=== PATIENT | female | born 1935 | race Caucasian/White ===

== ENCOUNTER 2017-03-09 14:45 | Emergency (ER) | payer MEDICARE ==
[2017-03-09] MEDS ORDERED: Acetaminophen TAB* 325 MG PO ONE (15:19)
--- NOTE | 2017-03-09 16:21 | RAD ---
INDICATION: Right knee injury. TECHNIQUE: 4 views of the right knee were obtained. FINDINGS: The bones appear osteopenic. There appears to be a joint effusion present. No fracture is seen. 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 There is an area of calcification which projects lateral to the femoral metaphysis. IMPRESSION: JOINT EFFUSION, NO FRACTURE IS SEEN. IF THE PATIENT'S SYMPTOMS PERSIST RECOMMEND FOLLOW-UP IMAGING.
--- NOTE | 2017-03-09 16:26 | RAD ---
INDICATION: Low back pain. COMPARISON: Comparison is made with a prior study from December 10, 2008. TECHNIQUE: 5 views of the lumbar spine were obtained including lateral, oblique, AP and a coned-down lateral view of the lumbar sacral junction. The exam is limited. There is poor visualization of the lumbar sacral junction. FINDINGS: There is a mild scoliosis convex toward the left side. No fracture is seen. There is moderate degenerative disc disease at the L3-L4, L4-L5 and L5-S1 levels. IMPRESSION: LIMITED STUDY WITH POOR VISUALIZATION OF THE LUMBAR SACRAL JUNCTION, NO FRACTURE IS SEEN.
--- NOTE | 2017-03-09 17:00 | RAD ---
INDICATION: Right hip injury. COMPARISON: There are no prior studies available for comparison. TECHNIQUE: An AP view of the pelvis and frontal and lateral views of the right hip were obtained. The exam is limited. FINDINGS: The bones are in normal alignment. No fracture is seen. 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 IMPRESSION: LIMITED STUDY, NO EVIDENCE FOR FRACTURE, IF THE PATIENT'S SYMPTOMS PERSIST RECOMMEND FOLLOW-UP IMAGING.
--- NOTE | 2017-03-09 17:02 | RAD ---
INDICATION: Left shoulder injury. TECHNIQUE: 4 views of the left shoulder were obtained. FINDINGS: The bones are in normal alignment. No fracture is seen. There is severe osteoarthritic change in the acromioclavicular joint. IMPRESSION: NO EVIDENCE OF FRACTURE.
[2017-03-09 18:53] VITALS: BP 147/86
--- NOTE | 2017-03-10 15:22 | ED ---
Elizabeth Whiting Nilda, scribed for Ryan Mckay MD on 03/09/17 at 1514 . Adult Trauma - HPI Summary HPI Summary: This patient is an 81 year old F BIBA to [facility] accompanied by family with a chief complaint of left knee pain s/p falling from a computer chair earlier today. Patient was seated on the computer chair and bended over to picker something from the floor, and the seat slipped out from under her. Pt states that she landed on her right side, but she believes left-sided pain may be exacerbated due to trauma history from previous accident. 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 Pt was non-ambulatory after the fall. The patient rates the pain 5/10 in severity. Symptoms aggravated by weight bearing and alleviated by rest. Patient reports lower back pain. Pt states at PCPs advisory, she can only take Tylenol for pain. - History of Current Complaint Stated Complaint: FALL Time Seen by Provider: 03/09/17 15:02 Hx Obtained From: Patient Mechanism of Injury: Fall Ambulatory at the Scene: No Loss of Consciousness: no loss of consciousness Onset/Duration: Started Minutes Ago, Traumatic, Still Present Onset Severity: Moderate Pain Intensity: 5 Pain Scale Used: 0-10 Numeric Location: Back - Lower back pain, left knee pain, LLE pain, Extremities - LLE pain Aggravating Factor(s): Weight Bearing Alleviating Factor(s): Rest Associated Signs & Symptoms: Positive: Other: - left knee and L - Allergy/Home Medications Allergies/Adverse Reactions: Allergies Allergy/AdvReac Type Severity Reaction Status Date / Time No Known Allergies Allergy Verified 03/09/17 16:10 PMH/Surg Hx/FS Hx/Imm Hx Endocrine/Hematology History: Reports: Hx Thyroid Disease Cardiovascular History: Reports: Hx Hypertension Respiratory History: Denies: Hx Asthma Musculoskeletal History: Reports: Hx Osteoporosis - Cancer History Hx Chemotherapy: No Hx Radiation Therapy: No - Surgical History Surgery Procedure, Year, and Place: CHOLECYSTECTOMY Infectious Disease History: Denies: Traveled Outside the [place] in Last 30 Days - Family History Known Family History: Positive: Cardiac Disease, Hypertension, Diabetes - Social History Lives: With Family Alcohol Use: None Hx Substance Use: No Substance Use Type: Reports: None Hx Tobacco Use: No Smoking Status (MU): Never Smoked Tobacco Review of Systems Positive: Other - mechanical fall Negative: Shortness Of Breath Positive: Other - LLE Pain, Left knee pain, Lower back pain, not ambulatory after fall Neurological: Other - negative LOC All Other Systems Reviewed And Are Negative: Yes Physical Exam - Summary Physical Exam Summary: VITAL SIGNS: Reviewed. GENERAL: Patient is a well-developed and nourished obese female who is lying comfortable in the stretcher and is in NAD. Patient is not in any acute respiratory distress. HEAD AND FACE: No signs of trauma. No ecchymosis, hematomas or skull depressions. No sinus tenderness. EYES: PERRLA, EOMI x 2, No injected conjunctiva, no nystagmus. EARS: Hearing grossly intact. Ear canals and tympanic membranes are within normal limits. MOUTH: Oropharynx within normal limits. NECK: Supple, trachea is midline, no adenopathy, no JVD, no carotid bruit, no c- spine tenderness, neck with full ROM. CHEST: Symmetric, no tenderness at palpation LUNGS: Clear to auscultation bilaterally. No wheezing or crackles. CVS: Regular rate and rhythm, S1 and S2 present, no murmurs or gallops appreciated. ABDOMEN: Soft, non-tender. No signs of distention. No rebound no guarding, and no masses palpated. Bowel sounds are normal. EXTREMITIES: Decrease ROM in right knee secondary to pain, no deformity, no ecchymosis, no hematoma, no edema, no cyanosis or clubbing. BACK: Lower lumbar paraspinal tenderness on right side. NEURO: Alert and oriented x 3. No acute neurological deficits. Speech is normal and follows commands. SKIN: Dry and warm Triage Information Reviewed: Yes Vital Signs Reviewed: Yes Diagnostics - Laboratory Lab Statement: Any lab studies that have been ordered have been reviewed, and results considered in the medical decision making process. - Radiology Shoulder XR Radiology Interpretation Completed By: Radiologist - Shoulder XR, per radiologist, reveals no evidence of fracture. ED physician has reviewed this radiology report and agrees. Lumbarsacral XR Radiology Interpretation Completed By: Radiologist - Lumbarsacral XR, per radiologist, reveals limited study with poor visualization of the lumbar sacral junction. No fracture is seen. ED physician has reviewed this radiology report and agrees. Right Hip XR Radiology Interpretation Completed By: Radiologist - Right Hip XR, limited study. No evidence for fracture. If the patients symptoms persists recommend follow up imaging. ED physician has reviewed this radiology report and agrees. Right knee XR Radiology Interpretation Completed By: Radiologist - Right Knee XR, per radiologist, reveals joint effusion. No fracture is seen. If the patients symptoms persist recommend follow-up imaging. ED physician has reviewed this radiology report and agrees. Re-Evaluation - Re-Evaluation Second Eval Re-Evaluation Time: 18:35 Comment: Pt able to ambulate with the walker that she normally uses. Discussed plan to DC pt. Pt is agreeable with this plan. First Eval Re-Evaluation Time: 17:55 Comment: Reviewed lab results. Adult Trauma Course/Dx - Course Assessment/Plan: This patient is an 81 year old F BIBA to [facility] accompanied by family with a chief complaint of left knee pain s/p falling from a computer chair earlier today. Patient was seated on the computer chair and bended over to picker something from the floor, and the seat slipped out from under her. Pt states that she landed on her right side, but she believes left-sided pain may be exacerbated due to trauma history from previous accident. 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 Pt was non-ambulatory after the fall. The patient rates the pain 5/10 in severity. Symptoms aggravated by weight bearing and alleviated by rest. Patient reports lower back pain. Pt states at PCPs advisory, she can only take Tylenol for pain. Pending right knee XR, Shoulder XR, Right Hip XR, and lumbarsacral XR. Shoulder XR, per radiologist, reveals no evidence of fracture. Lumbarsacral XR, per radiologist , reveals limited study with poor visualization of the lumbar sacral junction. No fracture is seen. Right Hip XR, limited study. No evidence for fracture. If the patients symptoms persists recommend follow up imaging. Right Knee XR, per radiologist, reveals joint effusion. No fracture is seen. If the patients symptoms persist recommend follow-up imaging. ED physician has reviewed these radiology reports and agrees. In the ED course, the patient was given Tylenol. The pt is hemodynamically stable, alert and oriented x3. Pt is able to ambulate with walker that she normally uses. Pt will be D/C with diagnoses of accidental fall, hip pain, and knee pain. - Diagnoses Provider Diagnoses: Hip pain, Knee pain, Accidental fall Discharge - Discharge Plan Condition: Stable Disposition: HOME Patient Education Materials: Fall Prevention for Older Adults (ED), Swollen Knee Joint (ED), Hip Pain (ED) Referrals: Jamie Ley MD [Primary Care Provider] - The documentation as recorded by the Elizabeth wilder Nilda accurately reflects the service I personally performed and the decisions made by Woody donnelly Walter, MD.
== END 2017-03-09 18:58 | disposition home or self-care (01) ==
LOC: ED 14:45
DX: M25.562 Pain in left knee (principal); M25.552 Pain in left hip
CPT/HCPCS: 72110; 99282; A9270-GY

== ENCOUNTER 2020-12-24 08:19 | Inpatient (IN) ==
[2020-12-24 15:17] LABS: ABS Monocytes 0.8 10^3/ul (0-0.8); ABS Neutrophils 9.2 10^3/ul (1.5-7.7); Eosinophil % 0.2 %; Hematocrit 42 % (35-47); Hemoglobin 13.9 g/dL (12.0-16.0); Lymphocyte % 8.9 %; Mean Corpuscular HGB Conc 33 g/dL (31-36); Mean Corpuscular Hemoglobin 29 pg (27-31); Mean Corpuscular Volume 88 fL (80-97); Mean Platelet Volume 7.6 fL (7.4-10.4); Platelet Count 267 10^3/uL (150-450); Red Blood Count 4.75 10^6 /uL (3.70-4.87); Red Cell Distribution Width 15 % (10-15); White Blood Count 11.1 10^3/uL (3.5-10.8)
[2020-12-24 15:33] LABS: Albumin 3.8 g/dL (3.2-5.2); Albumin/Globulin Ratio 1.3 (1-3); Calcium 9.8 mg/dL (8.6-10.3); EGFR African American 124.8 (>60); EGFR Non-African American 103.1 (>60); Potassium 3.9 mmol/L (3.5-5.0); Total Bilirubin 0.7 mg/dL (0.2-1.0); Total Protein 6.8 g/dL (6.4-8.9)
[2020-12-24] MEDS ORDERED: Iohexol 350 (CONTRAST) 500 ML MDV IV ONE (17:32)
[2020-12-24] MEDS ORDERED: Ondansetron 4 mg VIAL 2 MG/ML 2 ml VIAL IV PRN (17:47)
[2020-12-24 19:17] LABS: HDL Cholesterol 66.4 mg/dL
[2020-12-24 20:20] LABS: Rapid COVID-19 Molecular Undetected (Undetected)
[2020-12-24 22:37] LABS: Urine Appearance Cloudy; Urine Bilirubin Negative (Negative); Urine Blood Negative (Negative); Urine Color Yellow; Urine Glucose Negative (Negative); Urine Ketones Negative (Negative); Urine Nitrite Positive (Negative); Urine Protein Negative (Negative); Urine Urobilinogen Negative (Negative)
[2020-12-24 22:44] LABS: Urine Bacteria Absent (Absent); Urine Red Blood Cell 2+(6-10/hpf) (Absent); Urine Squamous Epithelial Cell Present (Absent); Urine White Blood Cell 3+(>20/hpf) (Absent)
[2020-12-24 23:24] LABS: Urine Specific Gravity > 1.060 (1.002-1.030)
[2020-12-25 06:39] LABS: ABS Eosinophils 0.1 10^3/ul (0-0.6); ABS Lymphocytes 1.2 10^3/ul (1.0-4.8); ABS Monocytes 0.6 10^3/ul (0-0.8); ABS Neutrophils 5.6 10^3/ul (1.5-7.7); Eosinophil % 1.2 %; Hematocrit 40 % (35-47); Hemoglobin 13.3 g/dL (12.0-16.0); Lymphocyte % 15.4 %; Mean Corpuscular HGB Conc 34 g/dL (31-36); Mean Corpuscular Hemoglobin 30 pg (27-31); Mean Corpuscular Volume 89 fL (80-97); Mean Platelet Volume 7.8 fL (7.4-10.4); Platelet Count 208 10^3/uL (150-450); Red Blood Count 4.45 10^6 /uL (3.70-4.87); Red Cell Distribution Width 16 % (10-15); White Blood Count 7.5 10^3/uL (3.5-10.8)
[2020-12-25 06:47] LABS: Calcium 9.3 mg/dL (8.6-10.3); Potassium 3.9 mmol/L (3.5-5.0)
[2020-12-25 06:53] LABS: EGFR African American 122.3 (>60)
[2020-12-25] MEDS: Cholecalciferol (VIT D3) 1,000 unit TAB PO SCH (09:01)
[2020-12-26] MEDS: Cholecalciferol (VIT D3) 1,000 unit TAB PO SCH (11:12)
[2020-12-26] MEDS ORDERED: Perflutren Lipid Microsphere 3 ML VIAL ONE (14:13)
[2020-12-26] MEDS: Polyethylene Glycol 3350 17 GM PACKET PO SCH (15:07)
[2020-12-26] MEDS ORDERED: Albuterol HFA INHALER 8 gm MDI INH PRN (23:48)
[2020-12-27 07:56] VITALS: BP 143/66
[2020-12-27] MEDS: Polyethylene Glycol 3350 17 GM PACKET PO SCH (08:57)
[2020-12-27] MEDS: Cholecalciferol (VIT D3) 1,000 unit TAB PO SCH (08:58)
== END 2020-12-27 09:20 | DRG 66 ==
LOC: ED 08:19 → MEDTELE 18:53 → UNDODISIN 12-27 09:20
PROVIDERS: ADMIT Hospitalist; ATTEND Internal Medicine

== ENCOUNTER 2020-12-27 07:16 | Inpatient (IN) ==
[2020-12-27] MEDS: Albuterol HFA INHALER 8 gm MDI INH PRN (17:47)
[2020-12-27] MEDS: Heparin 5000 UNITS/ML 1 mL VIAL SUBCUT SCH (20:12)
[2020-12-27] MEDS: Senna TAB 8.6 mg TAB PO PRN (20:12)
[2020-12-28] MEDS: Albuterol HFA INHALER 8 gm MDI INH PRN (01:03)
[2020-12-28 05:55] LABS: ABS Eosinophils 0.2 10^3/ul (0-0.6); ABS Lymphocytes 1.3 10^3/ul (1.0-4.8); ABS Monocytes 0.7 10^3/ul (0-0.8); Eosinophil % 2.3 %; Hematocrit 40 % (35-47); Hemoglobin 13.3 g/dL (12.0-16.0); Lymphocyte % 15.6 %; Mean Corpuscular HGB Conc 34 g/dL (31-36); Mean Corpuscular Hemoglobin 30 pg (27-31); Mean Corpuscular Volume 88 fL (80-97); Mean Platelet Volume 7.7 fL (7.4-10.4); Platelet Count 239 10^3/uL (150-450); Red Cell Distribution Width 15 % (10-15); White Blood Count 8.2 10^3/uL (3.5-10.8)
[2020-12-28 06:13] LABS: Albumin 3.5 g/dL (3.2-5.2); Albumin/Globulin Ratio 1.1 (1-3); Calcium 10.1 mg/dL (8.6-10.3); EGFR African American 108.9 (>60); Globulin 3.1 g/dL (2-4); Potassium 4.2 mmol/L (3.5-5.0); Total Bilirubin 0.9 mg/dL (0.2-1.0); Total Protein 6.6 g/dL (6.4-8.9)
[2020-12-28] MEDS: Heparin 5000 UNITS/ML 1 mL VIAL SUBCUT SCH ×2 (07:29→19:36)
[2020-12-28] MEDS: SPIRIVA Respimat (tiotropium) 2.5 mcg/inh Inhaler INH SCH (11:10)
[2020-12-28] MEDS: Senna TAB 8.6 mg TAB PO PRN (19:36)
[2020-12-29] MEDS: Heparin 5000 UNITS/ML 1 mL VIAL SUBCUT SCH ×2 (09:41→21:02)
[2020-12-29] MEDS: Albuterol HFA INHALER 8 gm MDI INH PRN (09:42)
[2020-12-29] MEDS: SPIRIVA Respimat (tiotropium) 2.5 mcg/inh Inhaler INH SCH (09:45)
[2020-12-30] MEDS: SPIRIVA Respimat (tiotropium) 2.5 mcg/inh Inhaler INH SCH (10:32)
[2020-12-30] MEDS: Heparin 5000 UNITS/ML 1 mL VIAL SUBCUT SCH ×2 (10:32→21:04)
[2020-12-30] MEDS: Albuterol HFA INHALER 8 gm MDI INH PRN (15:59)
[2020-12-31] MEDS: Heparin 5000 UNITS/ML 1 mL VIAL SUBCUT SCH ×2 (09:46→21:17)
[2020-12-31] MEDS: SPIRIVA Respimat (tiotropium) 2.5 mcg/inh Inhaler INH SCH (09:47)
[2020-12-31] MEDS: Nystatin TOP POWDER 15 GM BTL TOPICAL SCH ×2 (16:22→21:17)
[2021-01-01] MEDS: Albuterol HFA INHALER 8 gm MDI INH PRN (01:14)
[2021-01-01] MEDS: Heparin 5000 UNITS/ML 1 mL VIAL SUBCUT SCH ×2 (08:44→20:18)
[2021-01-01] MEDS: SPIRIVA Respimat (tiotropium) 2.5 mcg/inh Inhaler INH SCH (08:45)
[2021-01-01] MEDS: Nystatin TOP POWDER 15 GM BTL TOPICAL SCH ×3 (08:45→20:18)
[2021-01-02] MEDS: Albuterol HFA INHALER 8 gm MDI INH PRN (04:19)
[2021-01-02] MEDS: Nystatin TOP POWDER 15 GM BTL TOPICAL SCH ×3 (09:05→20:22)
[2021-01-02] MEDS: Heparin 5000 UNITS/ML 1 mL VIAL SUBCUT SCH ×2 (09:07→20:21)
[2021-01-02] MEDS: SPIRIVA Respimat (tiotropium) 2.5 mcg/inh Inhaler INH SCH (09:10)
[2021-01-02] MEDS ORDERED: Magnesium Hydroxide LIQ 30 ML UDC PO PRN (16:54)
[2021-01-03] MEDS: Nystatin TOP POWDER 15 GM BTL TOPICAL SCH ×3 (09:00→21:28)
[2021-01-03] MEDS: Heparin 5000 UNITS/ML 1 mL VIAL SUBCUT SCH ×2 (09:02→21:11)
[2021-01-03] MEDS: SPIRIVA Respimat (tiotropium) 2.5 mcg/inh Inhaler INH SCH (09:06)
[2021-01-04 06:50] LABS: ABS Eosinophils 0.2 10^3/ul (0-0.6); ABS Lymphocytes 1.3 10^3/ul (1.0-4.8); ABS Monocytes 0.5 10^3/ul (0-0.8); ABS Neutrophils 4.8 10^3/ul (1.5-7.7); Eosinophil % 3.2 %; Hematocrit 38 % (35-47); Hemoglobin 12.7 g/dL (12.0-16.0); Lymphocyte % 19.4 %; Mean Corpuscular HGB Conc 34 g/dL (31-36); Mean Corpuscular Hemoglobin 30 pg (27-31); Mean Corpuscular Volume 89 fL (80-97); Mean Platelet Volume 7.4 fL (7.4-10.4); Platelet Count 281 10^3/uL (150-450); Red Blood Count 4.25 10^6 /uL (3.70-4.87); Red Cell Distribution Width 15 % (10-15); White Blood Count 6.9 10^3/uL (3.5-10.8)
[2021-01-04 07:07] LABS: Albumin 3.5 g/dL (3.2-5.2); Albumin/Globulin Ratio 1.3 (1-3); Calcium 9.6 mg/dL (8.6-10.3); EGFR African American 117.5 (>60); EGFR Non-African American 97.1 (>60); Globulin 2.8 g/dL (2-4); Total Bilirubin 0.6 mg/dL (0.2-1.0); Total Protein 6.3 g/dL (6.4-8.9)
[2021-01-04] MEDS: SPIRIVA Respimat (tiotropium) 2.5 mcg/inh Inhaler INH SCH (09:07)
[2021-01-04] MEDS: Heparin 5000 UNITS/ML 1 mL VIAL SUBCUT SCH ×2 (09:10→20:50)
[2021-01-04] MEDS: Nystatin TOP POWDER 15 GM BTL TOPICAL SCH ×3 (09:13→20:53)
[2021-01-05] MEDS: Heparin 5000 UNITS/ML 1 mL VIAL SUBCUT SCH ×2 (09:38→21:15)
[2021-01-05] MEDS: SPIRIVA Respimat (tiotropium) 2.5 mcg/inh Inhaler INH SCH (09:38)
[2021-01-05] MEDS: Nystatin TOP POWDER 15 GM BTL TOPICAL SCH ×3 (09:41→21:14)
[2021-01-05] MEDS: Senna TAB 8.6 mg TAB PO PRN (21:14)
[2021-01-06] MEDS: Heparin 5000 UNITS/ML 1 mL VIAL SUBCUT SCH ×2 (09:30→20:00)
[2021-01-06] MEDS: Nystatin TOP POWDER 15 GM BTL TOPICAL SCH ×3 (09:30→20:04)
[2021-01-06] MEDS: SPIRIVA Respimat (tiotropium) 2.5 mcg/inh Inhaler INH SCH (09:30)
[2021-01-07] MEDS: Heparin 5000 UNITS/ML 1 mL VIAL SUBCUT SCH ×2 (07:49→20:48)
[2021-01-07] MEDS: Nystatin TOP POWDER 15 GM BTL TOPICAL SCH ×3 (07:49→20:49)
[2021-01-07] MEDS: SPIRIVA Respimat (tiotropium) 2.5 mcg/inh Inhaler INH SCH (07:50)
[2021-01-08] MEDS: Heparin 5000 UNITS/ML 1 mL VIAL SUBCUT SCH ×2 (08:39→21:16)
[2021-01-08] MEDS: SPIRIVA Respimat (tiotropium) 2.5 mcg/inh Inhaler INH SCH (08:40)
[2021-01-08] MEDS: Nystatin TOP POWDER 15 GM BTL TOPICAL SCH ×3 (10:30→21:15)
[2021-01-09] MEDS: Heparin 5000 UNITS/ML 1 mL VIAL SUBCUT SCH ×2 (08:18→20:06)
[2021-01-09] MEDS: SPIRIVA Respimat (tiotropium) 2.5 mcg/inh Inhaler INH SCH (08:23)
[2021-01-09] MEDS: Nystatin TOP POWDER 15 GM BTL TOPICAL SCH ×3 (09:57→21:19)
[2021-01-09] MEDS: Senna TAB 8.6 mg TAB PO PRN (20:07)
[2021-01-10] MEDS: Heparin 5000 UNITS/ML 1 mL VIAL SUBCUT SCH ×2 (09:09→20:42)
[2021-01-10] MEDS: Nystatin TOP POWDER 15 GM BTL TOPICAL SCH ×3 (09:09→20:43)
[2021-01-10] MEDS: SPIRIVA Respimat (tiotropium) 2.5 mcg/inh Inhaler INH SCH (09:10)
[2021-01-11] MEDS: Albuterol HFA INHALER 8 gm MDI INH PRN (04:06)
[2021-01-11 07:11] LABS: ABS Eosinophils 0.2 10^3/ul (0-0.6); ABS Lymphocytes 1.3 10^3/ul (1.0-4.8); ABS Monocytes 0.6 10^3/ul (0-0.8); ABS Neutrophils 4.8 10^3/ul (1.5-7.7); Eosinophil % 2.9 %; Hematocrit 36 % (35-47); Hemoglobin 12.4 g/dL (12.0-16.0); Lymphocyte % 18.9 %; Mean Corpuscular HGB Conc 34 g/dL (31-36); Mean Corpuscular Hemoglobin 30 pg (27-31); Mean Corpuscular Volume 89 fL (80-97); Mean Platelet Volume 7.4 fL (7.4-10.4); Platelet Count 250 10^3/uL (150-450); Red Blood Count 4.09 10^6 /uL (3.70-4.87); Red Cell Distribution Width 16 % (10-15); White Blood Count 6.9 10^3/uL (3.5-10.8)
[2021-01-11 07:31] LABS: Albumin 3.5 g/dL (3.2-5.2); Albumin/Globulin Ratio 1.3 (1-3); Calcium 9.6 mg/dL (8.6-10.3); EGFR African American 113.1 (>60); EGFR Non-African American 93.4 (>60); Globulin 2.8 g/dL (2-4); Total Bilirubin 0.6 mg/dL (0.2-1.0); Total Protein 6.3 g/dL (6.4-8.9)
[2021-01-11] MEDS: Heparin 5000 UNITS/ML 1 mL VIAL SUBCUT SCH ×2 (10:26→20:56)
[2021-01-11] MEDS: Nystatin TOP POWDER 15 GM BTL TOPICAL SCH ×3 (10:26→20:56)
[2021-01-11] MEDS: SPIRIVA Respimat (tiotropium) 2.5 mcg/inh Inhaler INH SCH (10:26)
[2021-01-12] MEDS: Nystatin TOP POWDER 15 GM BTL TOPICAL SCH ×3 (11:10→20:50)
[2021-01-12] MEDS: Heparin 5000 UNITS/ML 1 mL VIAL SUBCUT SCH ×2 (11:10→20:48)
[2021-01-12] MEDS: SPIRIVA Respimat (tiotropium) 2.5 mcg/inh Inhaler INH SCH (11:10)
[2021-01-13] MEDS: Albuterol HFA INHALER 8 gm MDI INH PRN (00:35)
[2021-01-13] MEDS: Nystatin TOP POWDER 15 GM BTL TOPICAL SCH (10:10)
[2021-01-13] MEDS: Heparin 5000 UNITS/ML 1 mL VIAL SUBCUT SCH ×2 (10:10→21:15)
[2021-01-13] MEDS: SPIRIVA Respimat (tiotropium) 2.5 mcg/inh Inhaler INH SCH (10:12)
[2021-01-14] MEDS: Heparin 5000 UNITS/ML 1 mL VIAL SUBCUT SCH ×2 (09:05→21:20)
[2021-01-14] MEDS: SPIRIVA Respimat (tiotropium) 2.5 mcg/inh Inhaler INH SCH (09:05)
[2021-01-14] MEDS: Albuterol HFA INHALER 8 gm MDI INH PRN ×3 (09:09→21:20)
[2021-01-14] MEDS: guaiFENesin 100 mg/5 ml LIQ unit dose cup PO PRN (17:18)
[2021-01-15] MEDS: guaiFENesin 100 mg/5 ml LIQ unit dose cup PO PRN ×2 (03:59→21:56)
[2021-01-15] MEDS: SPIRIVA Respimat (tiotropium) 2.5 mcg/inh Inhaler INH SCH (08:05)
[2021-01-15] MEDS: Heparin 5000 UNITS/ML 1 mL VIAL SUBCUT SCH ×2 (09:02→21:55)
[2021-01-15] MEDS: Albuterol HFA INHALER 8 gm MDI INH PRN (21:57)
[2021-01-16] MEDS: Albuterol HFA INHALER 8 gm MDI INH PRN ×3 (02:06→21:44)
[2021-01-16] MEDS: guaiFENesin 100 mg/5 ml LIQ unit dose cup PO PRN (05:58)
[2021-01-16] MEDS: SPIRIVA Respimat (tiotropium) 2.5 mcg/inh Inhaler INH SCH (08:28)
[2021-01-16] MEDS: Heparin 5000 UNITS/ML 1 mL VIAL SUBCUT SCH ×2 (08:29→21:44)
[2021-01-16] MEDS: Senna TAB 8.6 mg TAB PO PRN (21:44)
[2021-01-17] MEDS: SPIRIVA Respimat (tiotropium) 2.5 mcg/inh Inhaler INH SCH (08:17)
[2021-01-17] MEDS: Heparin 5000 UNITS/ML 1 mL VIAL SUBCUT SCH ×2 (08:17→20:39)
[2021-01-17] MEDS: guaiFENesin 100 mg/5 ml LIQ unit dose cup PO PRN (15:08)
[2021-01-17] MEDS: Albuterol HFA INHALER 8 gm MDI INH PRN (15:10)
[2021-01-18] MEDS: guaiFENesin 100 mg/5 ml LIQ unit dose cup PO PRN ×2 (00:54→20:19)
[2021-01-18 06:54] LABS: ABS Eosinophils 0.2 10^3/ul (0-0.6); ABS Lymphocytes 1.1 10^3/ul (1.0-4.8); ABS Monocytes 0.4 10^3/ul (0-0.8); ABS Neutrophils 4.9 10^3/ul (1.5-7.7); Eosinophil % 3.1 %; Hematocrit 37 % (35-47); Hemoglobin 12.5 g/dL (12.0-16.0); Lymphocyte % 16.9 %; Mean Corpuscular HGB Conc 34 g/dL (31-36); Mean Corpuscular Hemoglobin 31 pg (27-31); Mean Corpuscular Volume 90 fL (80-97); Mean Platelet Volume 7.4 fL (7.4-10.4); Platelet Count 250 10^3/uL (150-450); Red Blood Count 4.07 10^6 /uL (3.70-4.87); Red Cell Distribution Width 16 % (10-15); White Blood Count 6.7 10^3/uL (3.5-10.8)
[2021-01-18 07:19] LABS: Albumin 3.5 g/dL (3.2-5.2); Albumin/Globulin Ratio 1.3 (1-3); Calcium 9.8 mg/dL (8.6-10.3); Globulin 2.7 g/dL (2-4); Potassium 3.9 mmol/L (3.5-5.0); Total Bilirubin 0.5 mg/dL (0.2-1.0); Total Protein 6.2 g/dL (6.4-8.9)
[2021-01-18] MEDS: Heparin 5000 UNITS/ML 1 mL VIAL SUBCUT SCH ×2 (10:33→20:16)
[2021-01-18] MEDS: SPIRIVA Respimat (tiotropium) 2.5 mcg/inh Inhaler INH SCH (10:33)
[2021-01-18] MEDS: Albuterol HFA INHALER 8 gm MDI INH PRN (20:19)
[2021-01-19] MEDS: SPIRIVA Respimat (tiotropium) 2.5 mcg/inh Inhaler INH SCH (09:59)
[2021-01-19] MEDS: Heparin 5000 UNITS/ML 1 mL VIAL SUBCUT SCH ×2 (09:59→20:52)
[2021-01-19] MEDS: guaiFENesin 100 mg/5 ml LIQ unit dose cup PO PRN ×2 (10:00→20:52)
[2021-01-19] MEDS: Albuterol HFA INHALER 8 gm MDI INH PRN ×2 (10:02→20:54)
[2021-01-20 03:33] VITALS: BP 145/66
[2021-01-20] MEDS: SPIRIVA Respimat (tiotropium) 2.5 mcg/inh Inhaler INH SCH (09:03)
[2021-01-20] MEDS: Heparin 5000 UNITS/ML 1 mL VIAL SUBCUT SCH (09:03)
== END 2021-01-20 13:19 | disposition home health service (06) | DRG 57 ==
LOC: PMRU 09:52
PROVIDERS: ADMIT Physical Medicine & Rehabilitation; ATTEND Physical Medicine & Rehabilitation

== ENCOUNTER 2021-11-25 08:56 | Inpatient (IN) ==
[2021-11-25 09:26] LABS: ABS Eosinophils 0.1 10^3/ul (0-0.6); ABS Monocytes 0.5 10^3/ul (0-0.8); ABS Neutrophils 3.5 10^3/ul (1.5-7.7); Eosinophil % 2.5 %; Hematocrit 38 % (35-47); Hemoglobin 13.2 g/dL (12.0-16.0); Lymphocyte % 19.8 %; Mean Corpuscular HGB Conc 35 g/dL (31-36); Mean Corpuscular Hemoglobin 32 pg (27-31); Mean Corpuscular Volume 91 fL (80-97); Mean Platelet Volume 8.4 fL (7.4-10.4); Platelet Count 293 10^3/uL (150-450); Red Blood Count 4.19 10^6 /uL (3.70-4.87); Red Cell Distribution Width 15 % (10-15); White Blood Count 5.1 10^3/uL (3.5-10.8)
[2021-11-25 09:46] LABS: High Sens Troponin Baseline 4 pg/mL (<15)
[2021-11-25] MEDS: NS 0.9% 1000 ml BAG 1,000 ML IV SCH (09:54)
[2021-11-25 10:17] LABS: ALT 8 U/L (7-52); Albumin 3.9 g/dL (3.2-5.2); Albumin/Globulin Ratio 1.4 (1-3); Alkaline Phosphatase 96 U/L (35-149); Anion Gap 7 mmol/L (2-11); Blood Urea Nitrogen 10 mg/dL (6-24); CO2 Carbon Dioxide 26 mmol/L (22-32); Calcium 9.7 mg/dL (8.6-10.3); Chloride 105 mmol/L (101-111); Globulin 2.7 g/dL (2-4); Glucose 89 mg/dL (70-100); Sodium 138 mmol/L (135-145); Total Protein 6.6 g/dL (6.4-8.9)
[2021-11-25] MEDS ORDERED: Iohexol 350 (CONTRAST) 500 ML MDV IV ONE (10:25)
[2021-11-25 10:32] LABS: High Sensitivity Troponin 1 Hr 4 pg/mL (<15)
[2021-11-25 12:07] LABS: Magnesium 1.5 mg/dL (1.9-2.7); Potassium Redraw 3.9 mmol/L (3.5-5.0)
[2021-11-25 12:22] LABS: Urine Appearance Clear; Urine Bilirubin Negative (Negative); Urine Blood Negative (Negative); Urine Color Yellow; Urine Glucose Negative (Negative); Urine Ketones Negative (Negative); Urine Nitrite Positive (Negative); Urine Protein Negative (Negative); Urine Specific Gravity 1.015 (1.005-1.030); Urine Urobilinogen 0.2 (Negative) (Negative); Urine pH 6.5 (5.0-9.0)
[2021-11-25 12:29] LABS: Urine Bacteria 1+ (Absent); Urine Red Blood Cell Absent (Absent); Urine Squamous Epithelial Cell Present (Absent); Urine White Blood Cell Trace(0-5/hpf) (Absent)
[2021-11-25 12:33] LABS: HDL Cholesterol 47.3 mg/dL
[2021-11-25 12:44] LABS: Activated Partial Thrombo Time 29.9 seconds (26.0-38.0); INR 1.04 (0.89-1.11)
[2021-11-25] MEDS ORDERED: Magnesium Sulf 4 GM/100 ML IV 4,000 MG/100 ML BAG IVPB ONE (12:49)
[2021-11-25] MEDS ORDERED: Magnesium Hydroxide LIQ 30 ML UDC PO PRN (14:00)
[2021-11-25] MEDS ORDERED: Gadoteridol (CONTRAST) 279.3 MG/ML 10 ML IV ONE (14:23)
[2021-11-25] MEDS: Enoxaparin 40 MG/0.4 ML SYR SUBCUT SCH (15:55)
[2021-11-26 05:35] LABS: Calcium 9.2 mg/dL (8.6-10.3); Magnesium 1.8 mg/dL (1.9-2.7); Potassium 3.8 mmol/L (3.5-5.0); eGFR CKD-EPI 95.8 (>60)
[2021-11-26] MEDS: Cholecalciferol (VIT D3) 1,000 unit TAB PO SCH (09:00)
[2021-11-26] MEDS: NS 0.9% 1000 ml BAG 1,000 ML IV SCH (11:52)
[2021-11-26] MEDS: Enoxaparin 40 MG/0.4 ML SYR SUBCUT SCH (15:18)
[2021-11-27 06:46] LABS: Calcium 9.7 mg/dL (8.6-10.3); Magnesium 1.6 mg/dL (1.9-2.7); eGFR CKD-EPI 93.2 (>60)
[2021-11-27 07:00] LABS: TSH Ultra Thyroid Stim Horm 0.21 mcIU/mL (0.34-5.60)
[2021-11-27 07:02] LABS: Free T4 1.39 ng/dL (0.61-1.12)
[2021-11-27] MEDS: Cholecalciferol (VIT D3) 1,000 unit TAB PO SCH (09:26)
[2021-11-27] MEDS: Enoxaparin 40 MG/0.4 ML SYR SUBCUT SCH (14:56)
[2021-11-28] MEDS: Cholecalciferol (VIT D3) 1,000 unit TAB PO SCH (09:34)
[2021-11-28 12:15] VITALS: BP 133/77
== END 2021-11-28 10:48 | disposition home or self-care (01) | DRG 66 ==
LOC: ED 08:56 → EDHOLD 14:02 → SUATTDRO 14:02 → MEDTELE 17:58
PROVIDERS: ADMIT Internal Medicine; ATTEND Internal Medicine